=== PATIENT | male | born 1955 | race Caucasian/White ===

== ENCOUNTER 2018-11-08 09:05 | Day surgery (SDC) | payer MEDICARE ==
[2018-11-08] MEDS ORDERED: Fentanyl 100 MCG/2 ML VIAL ONE ×2 (11:03→11:52)
[2018-11-08] MEDS ORDERED: Midazolam HCl 2 mg/2 ml Vial ONE (11:03)
[2018-11-08] MEDS ORDERED: PROPOFOL 20 ML ONE (11:52)
[2018-11-08] MEDS ORDERED: Lidocaine 1% PF 5 ML VIAL ONE ×2 (11:52→18:36)
--- NOTE | 2018-11-08 13:10 | RAD ---
Intraoperative imaging left wrist: 11/08/2018 COMPARISON: 10/29/2018 HISTORY: Wrist fracture status post ORIF FINDINGS: The previously noted comminuted distal left radial fracture has been treated with screw and plate fixation. There is anatomic alignment at the fracture site. There is a mildly displaced transverse fracture at the base of the ulnar styloid. IMPRESSION: ORIF as above.
[2018-11-08] MEDS ORDERED: Acetaminophen/Codeine 30-300mg Tablet ONE (15:33)
[2018-11-08] MEDS ORDERED: Bupivacaine HCl 0.5%/Epinephrine 1:200,000/PF 30 ml Vial ONE (17:38)
--- NOTE | 2018-11-08 18:24 | OP ---
DATE OF PROCEDURE: 11/08/2018 OPERATION PERFORMED: Open reduction and internal fixation of left distal radius fracture. PREOPERATIVE DIAGNOSIS: Displaced left distal radius fracture. POSTOPERATIVE DIAGNOSIS: Displaced left distal radius fracture. COMPLICATIONS: None. ESTIMATED BLOOD LOSS: 50 mL. MEDICAL SERVICES ASSISTANT: Dwain Martinez. IMPLANT: Synthes volar distal radial plate with multiple locking and nonlocking screws. INDICATIONS: Mr. Ramos is a 63-year-old male, who fell and broke his left distal radius. He was indicated for open reduction and internal fixation to restore anatomic alignment and promote healing. Risks have been reviewed in detail. He elected to proceed with the operation. DESCRIPTION OF PROCEDURE: Mr. Ramos was identified in the preoperative holding area. His correct extremity was marked. He was carried to the operating room. He was positioned supine. General anesthesia was induced. A multidisciplinary time-out was performed. The left upper extremity was prepped and draped in sterile fashion. We began the procedure with a volar FCR approach to the distal radius. The tendon sheath was opened. We exposed the underlying pronator quadratus, which was elevated from the bone. We then exposed the underlying fracture. There was extensive displacement. We cleared the bony edges. We then reduced the fracture with reduction forceps and traction. We held this with a K-wire. At this point, we applied our volar distal radial plate. Multiple screws were placed proximally and distally. We locked the plate to the bone. We thoroughly irrigated with copious lavage. We then filled all screw holes. We took final x-ray images. We thoroughly irrigated and closed in layers appropriately. A sterile dressing and a splint were placed. The patient was then taken to the recovery room in good condition. Job ID: [id number]
[2018-11-08] MEDS ORDERED: Metoclopramide HCl 10 MG/2 ML VIAL ONE (18:36)
[2018-11-08] MEDS ORDERED: Ketorolac Tromethamine 30 MG/ML VIAL ONE (18:36)
[2018-11-08] MEDS ORDERED: PROPOFOL 200 MG/20 ML VIAL ONE (18:36)
[2018-11-08] MEDS ORDERED: Ondansetron PF 4 MG/2 ML Vial ONE (18:36)
== END 2018-11-09 16:50 | disposition home or self-care (01) ==
LOC: SDC 09:05
PROVIDERS: ATTEND Orthopaedic Surgery
PROC: 0PSJ04Z Reposition Left Radius with Internal Fixation Device, Open Approach (ICD-10-PCS; principal; 2018-11-08)
PROC: 3E0T3BZ Introduction of Anesthetic Agent into Peripheral Nerves and Plexi, Percutaneous Approach (ICD-10-PCS; 2018-11-08)
DX: S52.592A Other fractures of lower end of left radius, initial encounter for closed fracture (principal); S52.612A Displaced fracture of left ulna styloid process, initial encounter for closed fracture; G89.18 Other acute postprocedural pain; I25.10 Atherosclerotic heart disease of native coronary artery without angina pectoris; Z98.1 Arthrodesis status; W19.XXXA Unspecified fall, initial encounter
CPT/HCPCS: 76000; J0670; J0690; J1885; J2001; J2250; J2405; J2704; J2765; J3010

== ENCOUNTER 2022-10-06 12:38 | Inpatient (IN) | payer MEDICARE ==
[~2022-10-06 12:38] MED LIST: Iopamidol-370 76% 500 ML MDV (1 ML CHARGE) ONE
[2022-10-06 14:23] LABS: #Monocytes 0.6 thou/uL (0.11-0.59); #Neutrophils 8.4 thou/uL (1.40-6.50); %Basophils 0.2 % (0.0-1.0); %Eosinophils 0.2 % (0.0-10.0); %Lymphocytes 10.8 % (21.0-51.0); %Monocytes 5.8 % (0.0-10.0); %Neutrophils 79.2 % (42.0-75.0); Hematocrit 34.1 % (42.0-52.0); Hemoglobin 10.3 g/dL (14.0-18.0); Mean Corpuscular HGB CONC 30.2 g/dL (32.0-36.0); Mean Corpuscular Hemoglobin 22.1 pg (27.0-31.0); Mean Platelet Volume 9.7 fL (7.4-10.4); Platelet Count 469 10x3/uL (130-400); Red Blood Cell (RBC) Count 4.67 mill/uL (4.70-6.10); White Blood Cell (WBC) Count 10.7 10x3/uL (4.8-10.8)
[2022-10-06 14:46] LABS: ALT (SGPT) 26 U/L (8-55); AST (SGOT) 67 U/L (5-34); Albumin 2.9 g/dL (3.4-4.8); Alkaline Phosphatase 479 U/L (40-110); Anion Gap 17 mmol/L (10-20); BUN (Urea Nitrogen) 26 mg/dL (8.4-25.7); Bilirubin, Total 1.4 mg/dL (0.2-1.2); Calc. Creatinine Clearance 0 mL/min (70-130); Calcium 8.8 mg/dL (7.8-10.44); Carbon Dioxide 20 mmol/L (23-31); Chloride 97 mmol/L (98-107); Estimated GFR 87; Glucose 149 mg/dL (80-115); Lipase 21 U/L (8-78); Potassium 4.2 mmol/L (3.5-5.1); Protein, Total 6.9 g/dL (5.8-8.1); Sodium 130 mmol/L (136-145)
[2022-10-06 14:50] LABS: Troponin I Less than 0.010 ng/mL (< 0.028)
[2022-10-06 15:08] LABS: Anisocytosis SLIGHT = 6-15 cells HPF (0-5); Burr Cells SLIGHT = 2-5 cells HPF (0-1); CellaVision Operator ID LAB.KB; Hypochromia SLIGHT = 6-15 cells HPF (0-5); Microcytosis SLIGHT = 6-15 cells HPF (0-5); Platelet Adequacy Comment Platelets Increased; Polychromasia SLIGHT = 2-3 cells HPF (0-2)
[2022-10-06] MEDS ORDERED: Acetaminophen 325 MG TAB PO PRN (18:45)
[2022-10-06] MEDS ORDERED: Ondansetron ODT 4 MG TAB SL PRN (18:45)
[2022-10-06] MEDS ORDERED: Ondansetron PF 4 MG/2 ML Vial IVP PRN (18:45)
[2022-10-06] MEDS ORDERED: HumaLOG 300 UNITS/3 ML VIAL SC PRN ×2 (19:19)
[2022-10-06] MEDS ORDERED: Dextrose 50% Abboject 50 ML SYRINGE SLOW IVP PRN (19:19)
[2022-10-06] MEDS ORDERED: Glucagon 1 MG/ML KIT IM PRN (19:19)
[2022-10-06] MEDS ORDERED: Dextrose 5% in Water 1,000 ML IV PRN (19:19)
[2022-10-06] MEDS ORDERED: Ipratropium/Albuterol 3 ML NEB NEB PRN (20:20)
[2022-10-06 20:21] LABS: Magnesium 1.6 mg/dL (1.6-2.6); Phosphorus 4.1 mg/dL (2.3-4.7)
[2022-10-06] MEDS: Sodium Chloride 0.9% 1,000 ML IV SCH (21:20)
[2022-10-06 21:41] LABS: INR-International Normal Ratio 1.3; Prothrombin Time 16.6 sec (12.0-14.7)
[2022-10-06 21:42] LABS: PTT 35.7 sec (22.9-36.1)
[2022-10-06 21:48] LABS: Anion Gap 14 mmol/L (10-20); BUN (Urea Nitrogen) 23 mg/dL (8.4-25.7); Calc. Creatinine Clearance 0 mL/min (70-130); Carbon Dioxide 16 mmol/L (23-31); Chloride 102 mmol/L (98-107); Estimated GFR 87; Glucose 165 mg/dL (80-115); Potassium 4.2 mmol/L (3.5-5.1); Sodium 128 mmol/L (136-145)
[2022-10-06 23:08] VITALS: BMI 25.2
[2022-10-07 04:53] LABS: Actual Bicarbonate (HCO3v) 20.5 mEq/L (22-28); Base Excess -4.6 mEq/L (-2.0 to +3.0); Calcium, Ionized (venous) 1.12 mmol/L (1.16-1.32); Chloride (VBG) 101 mmol/L (98-106); Hematocrit-VBG 34 % (42.0-52.0); Hemoglobin (Hb) 11.7 g/dL (12.6-17.4); Potassium (VBG) 4.05 mmol/L (3.70-5.30); Sodium 133.6 mmol/L (133-146); pH (venous) 7.351 (7.32-7.43)
[2022-10-07 05:08] LABS: Hemoglobin A1c 6.2 % (4.0-6.0)
[2022-10-07 05:16] LABS: Anion Gap 16 mmol/L (10-20); BUN (Urea Nitrogen) 20 mg/dL (8.4-25.7); Calc. Creatinine Clearance 90 mL/min (70-130); Calcium 8.9 mg/dL (7.8-10.44); Carbon Dioxide 19 mmol/L (23-31); Chloride 100 mmol/L (98-107); Cholesterol 195 mg/dl (< 200 Desired); Estimated GFR 97; Glucose 133 mg/dL (80-115); HDL Cholesterol 13 mg/dL (>60 Neg Risk); LDL Cholesterol, Calculated 139 mg/dL; Potassium 3.9 mmol/L (3.5-5.1); Sodium 131 mmol/L (136-145); Triglycerides 217 mg/dL (Less than 150)
[2022-10-07] MEDS: Mometasone/Formoterol 200/5 60 PUFF INH SCH ×2 (07:19→18:09)
[2022-10-07] MEDS ORDERED: Clopidogrel Bisulfate 75 MG TAB PO SCH (09:00)
[2022-10-07] MEDS: Pantoprazole 40 MG VIAL IVP SCH (09:03)
[2022-10-07] MEDS: Aspirin 81 mg Enteric Coated Tablet PO SCH (09:03)
[2022-10-07] MEDS: Gemfibrozil 600 MG TAB PO SCH ×2 (09:03→15:36)
[2022-10-07] MEDS: Sodium Chloride 0.9% 1,000 ML IV SCH (09:05)
[2022-10-07 09:07] LABS: HBCM Index 0.08 S/CO (0-0.79); HBSAg Index 0.42 S/CO (0-0.99); Hep A IgM AB Non-Reactive S/CO (NonReactive); Hep A IgM S/CO 0.17 S/CO (0-0.79); Hep B Surf Ag Non-Reactive S/CO (NonReactive); Hep C IgG Ab Non-Reactive S/CO (NonReactive); Hep C Index 0.07 S/CO (0-0.79); Hepatitis B Core IgM Abs Non-Reactive S/CO (NonReactive)
[2022-10-07] MEDS: Acetaminophen 325 MG TAB PO PRN (18:05)
[2022-10-08] MEDS: Sodium Chloride 0.9% 1,000 ML IV SCH ×2 (00:04→13:58)
[2022-10-08] MEDS: Acetaminophen 325 MG TAB PO PRN ×2 (02:03→09:14)
[2022-10-08] MEDS ORDERED: HYDROcodone/Acetaminophen 5/325 mg Tablet PO SCH (03:15)
[2022-10-08 05:26] LABS: ALT (SGPT) 30 U/L (8-55); AST (SGOT) 90 U/L (5-34); Albumin 2.7 g/dL (3.4-4.8); Alkaline Phosphatase 555 U/L (40-110); Anion Gap 13 mmol/L (10-20); BUN (Urea Nitrogen) 15 mg/dL (8.4-25.7); Bilirubin, Total 1.2 mg/dL (0.2-1.2); Calc. Creatinine Clearance 101 mL/min (70-130); Calcium 8.7 mg/dL (7.8-10.44); Carbon Dioxide 19 mmol/L (23-31); Chloride 104 mmol/L (98-107); Estimated GFR 100; Gamma GT (GGT) 165 U/L (12-64); Globulin 3.6 g/dL (2.4-3.5); Glucose 175 mg/dL (80-115); Iron 21 ug/dL (65-175); Iron Binding Capacity, Total 281 mcg/dL (261-462); Potassium 3.3 mmol/L (3.5-5.1); Protein, Total 6.3 g/dL (5.8-8.1); Sodium 133 mmol/L (136-145)
[2022-10-08] MEDS: Mometasone/Formoterol 200/5 60 PUFF INH SCH (07:37)
[2022-10-08] MEDS: Aspirin 81 mg Enteric Coated Tablet PO SCH (09:12)
[2022-10-08] MEDS: Gemfibrozil 600 MG TAB PO SCH ×2 (09:12→16:29)
[2022-10-08] MEDS: Pantoprazole 40 MG VIAL IVP SCH (09:13)
[2022-10-08 15:44] VITALS: BP 120/64; TEMP 98.4
[2022-10-09 17:00] LABS: ANA Symphony (Qualitative) Negative (Negative); ANA Symphony (Quantitative) 0.3 Ratio (< 0.7 Negative); EliA Vaculitis New Method **** NEW METHOD ****; Mitochondrial Ab 0.8 U/mL (<4 Negative); dsDNA IgG Antibody 0.6 IU/mL (<10 Negative)
== END 2022-10-08 18:35 | disposition home or self-care (01) | DRG 436 ==
LOC: ERS 12:38 → 2SE 16:58 → INTOOBSV 16:58 → OBSVTOIN 10-07 14:14
PROVIDERS: ADMIT Internal Medicine; ATTEND Internal Medicine
PROC: 4A10X4Z Monitoring of Central Nervous Electrical Activity, External Approach (ICD-10-PCS; principal; 2022-10-07)
PROC: 4A043R1 Measurement of Venous Saturation, Peripheral, Percutaneous Approach (ICD-10-PCS; 2022-10-07)
DX: C22.0 Liver cell carcinoma (principal); E87.1 Hypo-osmolality and hyponatremia; I50.20 Unspecified systolic (congestive) heart failure; K74.60 Unspecified cirrhosis of liver; E11.9 Type 2 diabetes mellitus without complications; J44.9 Chronic obstructive pulmonary disease, unspecified; I10 Essential (primary) hypertension; I25.2 Old myocardial infarction; E78.5 Hyperlipidemia, unspecified; Z79.82 Long term (current) use of aspirin; Z79.84 Long term (current) use of oral hypoglycemic drugs; Z79.899 Other long term (current) drug therapy; I25.10 Atherosclerotic heart disease of native coronary artery without angina pectoris; I11.0 Hypertensive heart disease with heart failure; Z98.890 Other specified postprocedural states; F17.210 Nicotine dependence, cigarettes, uncomplicated; R63.4 Abnormal weight loss; Z68.25 Body mass index [BMI] 25.0-25.9, adult
CPT/HCPCS: 36415; 36416; 70470; 70551; 71045; 71260; 74177; 74183; 76705; 80048; 80053; 80061; 80074; 82105; 82140; 82378; 82390; 82728; 82805; 82977; 83036; 83516; 83540; 83550; 83605; 83690; 83735; 83880; 84100; 84443; 84484; 85025; 85610; 85730; 86015; 86038; 86225; 86850; 86900; 86901; 93005; 95712; 95819; 95957; C9113; J1650; J1815; J7050; Q9967

== ENCOUNTER 2022-10-21 13:46 | Inpatient (IN) | payer MEDICARE ==
[2022-10-21 14:20] LABS: #Monocytes 0.6 thou/uL (0.11-0.59); #Neutrophils 6.5 thou/uL (1.40-6.50); %Basophils 0.4 % (0.0-1.0); %Eosinophils 0.1 % (0.0-10.0); %Lymphocytes 10.9 % (21.0-51.0); %Monocytes 7.7 % (0.0-10.0); %Neutrophils 80.2 % (42.0-75.0); Hematocrit 34.5 % (42.0-52.0); Hemoglobin 10.3 g/dL (14.0-18.0); Mean Corpuscular HGB CONC 29.9 g/dL (32.0-36.0); Mean Corpuscular Hemoglobin 22.5 pg (27.0-31.0); Mean Corpuscular Volume 75.5 fl (78.0-98.0); Mean Platelet Volume 9.5 fL (7.4-10.4); Platelet Count 276 10x3/uL (130-400); RBC Distribution Width 21.2 % (11.5-14.5); Red Blood Cell (RBC) Count 4.57 mill/uL (4.70-6.10); White Blood Cell (WBC) Count 8.1 10x3/uL (4.8-10.8)
[2022-10-21 14:53] LABS: ALT (SGPT) 25 U/L (8-55); AST (SGOT) 86 U/L (5-34); Albumin 2.8 g/dL (3.4-4.8); Alkaline Phosphatase 663 U/L (40-110); Anion Gap 12 mmol/L (10-20); BUN (Urea Nitrogen) 11 mg/dL (8.4-25.7); Bilirubin, Total 1.5 mg/dL (0.2-1.2); Calc. Creatinine Clearance 0 mL/min (70-130); Calcium 9.5 mg/dL (7.8-10.44); Carbon Dioxide 24 mmol/L (23-31); Chloride 96 mmol/L (98-107); Estimated GFR 100; Globulin 3.8 g/dL (2.4-3.5); Glucose 200 mg/dL (80-115); Lipase 9 U/L (8-78); Potassium 4.1 mmol/L (3.5-5.1); Protein, Total 6.6 g/dL (5.8-8.1); Sodium 128 mmol/L (136-145)
[2022-10-21 15:11] LABS: Troponin I 0.046 ng/mL (< 0.028)
[2022-10-21] MEDS ORDERED: Famotidine/PF 20 mg/2ml Vial ONE (15:45)
[2022-10-21 16:53] LABS: Bacteria/HPF None Seen HPF (None Seen); Bilirubin Negative (Negative); Blood, Urine Negative (Negative); CAUTI Indications for Culture Pelvic or flank pain; Clarity Clear (Clear); Glucose, Urine (Dipstick) Normal (Negative); Ketone, Urine Negative (Negative); Leukocyte Negative Leu/uL (Negative); Nitrite Negative (Negative); Protein, Urine (Dipstick) 30 mg/dL (Neg-Trace); RBC/HPF 0-3 HPF (0-3); Squamous Epithelial 0-3 HPF (0-3); WBC/HPF 0-3 HPF (0-3)
[2022-10-21 17:00] LABS: Specific Gravity, Urine 1.051 (1.002-1.036); Urine Culture Reflex No No
[2022-10-21] MEDS ORDERED: Ondansetron PF 4 MG/2 ML Vial IVP PRN (17:15)
[2022-10-21] MEDS ORDERED: Senokot S 8.6-50 MG TAB PO PRN (17:15)
[2022-10-21] MEDS ORDERED: Calcium Carbonate 500 MG ChewTAB PO PRN (17:15)
[2022-10-21] MEDS ORDERED: HYDROcodone/Acetaminophen 5/325 mg Tablet PO PRN (17:15)
[2022-10-21] MEDS ORDERED: Bisacodyl 5 MG TAB PO PRN (17:15)
[2022-10-21] MEDS ORDERED: Dextrose 5% in Water 1,000 ML IV PRN (17:17)
[2022-10-21] MEDS ORDERED: Dextrose 50% Abboject 50 ML SYRINGE SLOW IVP PRN (17:17)
[2022-10-21] MEDS ORDERED: HumaLOG 300 UNITS/3 ML VIAL SC PRN ×2 (17:17)
[2022-10-21] MEDS ORDERED: Glucagon 1 MG/ML KIT IM PRN (17:17)
[2022-10-21] MEDS ORDERED: Morphine 2 MG/ML VIAL SLOW IVP PRN (17:59)
[2022-10-21 18:10] LABS: Lactic Acid 1.8 mmol/L (0.5-2.2)
[2022-10-21] MEDS: Famotidine/PF 20 mg/2ml Vial SLOW IVP SCH (20:20)
[2022-10-21] MEDS: Sodium Chloride 0.9% 1,000 ML IV SCH (20:22)
[2022-10-21 22:56] LABS: Lactic Acid 1.8 mmol/L (0.5-2.2)
[2022-10-21 23:04] LABS: Troponin I 0.051 ng/mL (< 0.028)
[2022-10-22] MEDS: Sodium Chloride 0.9% 1,000 ML IV SCH ×2 (05:06→14:29)
[2022-10-22 07:55] LABS: #Monocytes 0.5 thou/uL (0.11-0.59); #Neutrophils 5.5 thou/uL (1.40-6.50); %Basophils 0.3 % (0.0-1.0); %Eosinophils 0.1 % (0.0-10.0); %Lymphocytes 10.5 % (21.0-51.0); %Monocytes 7.7 % (0.0-10.0); %Neutrophils 80.8 % (42.0-75.0); Hemoglobin 8.9 g/dL (14.0-18.0); Mean Corpuscular HGB CONC 29.7 g/dL (32.0-36.0); Mean Corpuscular Hemoglobin 22.3 pg (27.0-31.0); Mean Corpuscular Volume 75.2 fl (78.0-98.0); Mean Platelet Volume 9.2 fL (7.4-10.4); Platelet Count 254 10x3/uL (130-400); RBC Distribution Width 21.3 % (11.5-14.5); Red Blood Cell (RBC) Count 3.99 mill/uL (4.70-6.10); White Blood Cell (WBC) Count 6.8 10x3/uL (4.8-10.8)
[2022-10-22 08:21] LABS: ALT (SGPT) 17 U/L (8-55); AST (SGOT) 52 U/L (5-34); Albumin 2.5 g/dL (3.4-4.8); Alkaline Phosphatase 569 U/L (40-110); Anion Gap 10 mmol/L (10-20); BUN (Urea Nitrogen) 10 mg/dL (8.4-25.7); Bilirubin, Total 1.2 mg/dL (0.2-1.2); Calc. Creatinine Clearance 118 mL/min (70-130); Calcium 8.2 mg/dL (7.8-10.44); Carbon Dioxide 21 mmol/L (23-31); Chloride 103 mmol/L (98-107); Estimated GFR 104; Glucose 154 mg/dL (80-115); Magnesium 1.5 mg/dL (1.6-2.6); Potassium 2.8 mmol/L (3.5-5.1); Protein, Total 5.5 g/dL (5.8-8.1); Sodium 131 mmol/L (136-145)
[2022-10-22 08:22] LABS: Phosphorus 3.3 mg/dL (2.3-4.7)
[2022-10-22 08:23] LABS: Troponin I 0.037 ng/mL (< 0.028)
[2022-10-22] MEDS: Aspirin 81 mg Enteric Coated Tablet PO SCH (09:15)
[2022-10-22] MEDS: Famotidine/PF 20 mg/2ml Vial SLOW IVP SCH ×2 (09:15→20:45)
[2022-10-22 09:25] VITALS: BMI 25.3
[2022-10-22] MEDS ORDERED: Magnesium 2 GM/50 ML(in water) 2 GM in Premix Bag 1 BAG IVPB SCH (09:45)
[2022-10-22] MEDS: Potassium Chloride 20 MEQ TAB PO SCH ×2 (10:42→14:38)
[2022-10-22] MEDS ORDERED: Iopamidol-370 76% 500 ML MDV (1 ML CHARGE) ONE (13:03)
[2022-10-22] MEDS ORDERED: Megestrol Acetate 800 MG/20 ML UDCUP PO SCH (14:15)
[2022-10-22 23:19] LABS: Troponin I 0.039 ng/mL (< 0.028)
[2022-10-22 23:26] LABS: Anion Gap 11 mmol/L (10-20); BUN (Urea Nitrogen) 11 mg/dL (8.4-25.7); Calc. Creatinine Clearance 122 mL/min (70-130); Calcium 8.4 mg/dL (7.8-10.44); Carbon Dioxide 22 mmol/L (23-31); Chloride 104 mmol/L (98-107); Estimated GFR 105; Glucose 141 mg/dL (80-115); Magnesium 1.8 mg/dL (1.6-2.6); Potassium 4.3 mmol/L (3.5-5.1); Sodium 133 mmol/L (136-145)
[2022-10-23 02:05] LABS: #Monocytes 0.5 thou/uL (0.11-0.59); #Neutrophils 5.5 thou/uL (1.40-6.50); %Basophils 0.4 % (0.0-1.0); %Eosinophils 0.4 % (0.0-10.0); %Lymphocytes 13.6 % (21.0-51.0); %Monocytes 7.6 % (0.0-10.0); %Neutrophils 77.6 % (42.0-75.0); Hematocrit 31.2 % (42.0-52.0); Hemoglobin 9.3 g/dL (14.0-18.0); Mean Corpuscular HGB CONC 29.8 g/dL (32.0-36.0); Mean Corpuscular Hemoglobin 22.7 pg (27.0-31.0); Mean Corpuscular Volume 76.1 fl (78.0-98.0); Mean Platelet Volume 9.7 fL (7.4-10.4); Platelet Count 306 10x3/uL (130-400); RBC Distribution Width 21.6 % (11.5-14.5); White Blood Cell (WBC) Count 7.1 10x3/uL (4.8-10.8)
[2022-10-23 02:25] LABS: Troponin I 0.044 ng/mL (< 0.028)
[2022-10-23 02:36] LABS: ALT (SGPT) 20 U/L (8-55); AST (SGOT) 57 U/L (5-34); Albumin 2.8 g/dL (3.4-4.8); Alkaline Phosphatase 631 U/L (40-110); Anion Gap 14 mmol/L (10-20); BUN (Urea Nitrogen) 11 mg/dL (8.4-25.7); Bilirubin, Total 1.5 mg/dL (0.2-1.2); Calc. Creatinine Clearance 109 mL/min (70-130); Calcium 8.9 mg/dL (7.8-10.44); Carbon Dioxide 21 mmol/L (23-31); Chloride 104 mmol/L (98-107); Estimated GFR 102; Globulin 3.3 g/dL (2.4-3.5); Glucose 154 mg/dL (80-115); Magnesium 1.8 mg/dL (1.6-2.6); Phosphorus 2.7 mg/dL (2.3-4.7); Potassium 4.4 mmol/L (3.5-5.1); Protein, Total 6.1 g/dL (5.8-8.1); Sodium 135 mmol/L (136-145)
[2022-10-23] MEDS ORDERED: Megestrol Acetate 800 MG/20 ML UDCUP PO SCH (09:00)
[2022-10-23] MEDS: Aspirin 81 mg Enteric Coated Tablet PO SCH (10:01)
[2022-10-23] MEDS: Famotidine/PF 20 mg/2ml Vial SLOW IVP SCH (10:02)
[2022-10-23 12:22] VITALS: BP 125/66; TEMP 97.7
== END 2022-10-23 16:38 | disposition home or self-care (01) | DRG 436 ==
LOC: ERS 13:46 → SUATTDRO 13:46 → 2NO 18:02
PROVIDERS: ADMIT Internal Medicine; ATTEND Internal Medicine
DX: C22.0 Liver cell carcinoma (principal); E87.1 Hypo-osmolality and hyponatremia; I50.22 Chronic systolic (congestive) heart failure; Z66 Do not resuscitate; I11.0 Hypertensive heart disease with heart failure; I25.10 Atherosclerotic heart disease of native coronary artery without angina pectoris; E78.5 Hyperlipidemia, unspecified; E11.9 Type 2 diabetes mellitus without complications; F10.10 Alcohol abuse, uncomplicated; F19.10 Other psychoactive substance abuse, uncomplicated; J44.9 Chronic obstructive pulmonary disease, unspecified; D64.9 Anemia, unspecified; R62.7 Adult failure to thrive; F17.210 Nicotine dependence, cigarettes, uncomplicated; Z79.82 Long term (current) use of aspirin; Z79.899 Other long term (current) drug therapy; Z68.24 Body mass index [BMI] 24.0-24.9, adult
CPT/HCPCS: 36415; 36416; 71275; 74177; 80053; 81001; 82140; 83605; 83690; 83735; 83880; 84100; 84484; 85025; 85379; 87040; 93005; 93010; 93970; 96361; 96374; J1650; J1815; J3475; J7050; Q9967; S0028

== ENCOUNTER 2022-11-21 15:23 | Inpatient (IN) | payer MEDICARE ==
[2022-11-21 15:44] VITALS: BMI 21.7
[2022-11-21] MEDS ORDERED: FLU VACC QS2023(65UP)/MF59C/PF 60 MCG/0.5 ML SYRINGE IM ONE (16:00)
[2022-11-21] MEDS ORDERED: Nicotine 21 MG PATCH TD PRN (17:18)
[2022-11-21] MEDS ORDERED: HumaLOG 300 UNITS/3 ML VIAL SC PRN ×2 (17:18)
[2022-11-21] MEDS ORDERED: Dextrose 50% Abboject 50 ML SYRINGE SLOW IVP PRN (17:18)
[2022-11-21] MEDS ORDERED: Ondansetron ODT 4 MG TAB PO PRN (17:18)
[2022-11-21] MEDS ORDERED: Glucagon 1 MG/ML KIT IM PRN (17:18)
[2022-11-21] MEDS ORDERED: Ondansetron PF 4 MG/2 ML Vial IVP PRN (17:18)
[2022-11-21] MEDS ORDERED: Dextrose 5% in Water 1,000 ML IV PRN (17:18)
[2022-11-21] MEDS ORDERED: Ipratropium/Albuterol 3 ML NEB NEB PRN (17:29)
[2022-11-21] MEDS ORDERED: Sodium Chloride 0.9% 500 ML IV SCH (18:30)
[2022-11-21 19:55] LABS: INR-International Normal Ratio 1.4; PTT 40.1 sec (22.9-36.1); Prothrombin Time 17.3 sec (12.0-14.7)
[2022-11-22 05:06] LABS: #Eosinphils 0.1 thou/uL (0.0-0.7); #Monocytes 0.7 thou/uL (0.11-0.59); %Basophils 0.4 % (0.0-1.0); %Eosinophils 0.6 % (0.0-10.0); %Lymphocytes 9.6 % (21.0-51.0); %Monocytes 7.1 % (0.0-10.0); %Neutrophils 81.1 % (42.0-75.0); Hemoglobin 9.4 g/dL (14.0-18.0); Mean Corpuscular HGB CONC 30.3 g/dL (32.0-36.0); Mean Platelet Volume 9.4 fL (7.4-10.4); Platelet Count 431 10x3/uL (130-400); RBC Distribution Width 19.3 % (11.5-14.5); Red Blood Cell (RBC) Count 4.08 mill/uL (4.70-6.10); White Blood Cell (WBC) Count 9.9 10x3/uL (4.8-10.8)
[2022-11-22 05:33] LABS: Anion Gap 18 mmol/L (10-20); BUN (Urea Nitrogen) 16 mg/dL (8.4-25.7); Calc. Creatinine Clearance 95 mL/min (70-130); Calcium 8.8 mg/dL (7.8-10.44); Carbon Dioxide 19 mmol/L (23-31); Chloride 101 mmol/L (98-107); Estimated GFR 103; Glucose 101 mg/dL (80-115); Potassium 3.6 mmol/L (3.5-5.1); Sodium 134 mmol/L (136-145)
[2022-11-22] MEDS: Alogliptin 25 MG TAB PO SCH (08:19)
[2022-11-22] MEDS: Aspirin 325 MG TAB PO SCH (08:19)
[2022-11-22] MEDS ORDERED: LACTOSE REDUCED FOOD PO SCH (09:00)
[2022-11-22] MEDS: Calcium Carbonate 500 MG ChewTAB PO PRN (10:43)
[2022-11-22] MEDS: cefTRIAXone\\ROCEPHIN 1 GM in Sodium Chloride 0.9% 100 ML IVPB SCH (11:48)
[2022-11-22] MEDS: Acetaminophen 325 MG TAB PO PRN (12:38)
[2022-11-22 12:55] LABS: Magnesium 1.9 mg/dL (1.6-2.6)
[2022-11-22] MEDS: Sodium Chloride 0.9% 1,000 ML IV SCH (15:17)
[2022-11-23 08:54] LABS: #Monocytes 0.6 thou/uL (0.11-0.59); #Neutrophils 6.2 thou/uL (1.40-6.50); %Basophils 0.4 % (0.0-1.0); %Eosinophils 0.5 % (0.0-10.0); %Monocytes 7.3 % (0.0-10.0); %Neutrophils 80.9 % (42.0-75.0); Hematocrit 30.6 % (42.0-52.0); Hemoglobin 9.4 g/dL (14.0-18.0); Mean Corpuscular HGB CONC 30.7 g/dL (32.0-36.0); Mean Corpuscular Hemoglobin 23.3 pg (27.0-31.0); Mean Corpuscular Volume 75.9 fl (78.0-98.0); Platelet Count 347 10x3/uL (130-400); RBC Distribution Width 19.1 % (11.5-14.5); Red Blood Cell (RBC) Count 4.03 mill/uL (4.70-6.10); White Blood Cell (WBC) Count 7.6 10x3/uL (4.8-10.8)
[2022-11-23 09:11] LABS: INR-International Normal Ratio 1.3; PTT 37.3 sec (22.9-36.1); Prothrombin Time 17.1 sec (12.0-14.7)
[2022-11-23] MEDS: Aspirin 325 MG TAB PO SCH (09:13)
[2022-11-23] MEDS: Sodium Chloride 0.9% 1,000 ML IV SCH (09:13)
[2022-11-23] MEDS: Alogliptin 25 MG TAB PO SCH (09:13)
[2022-11-23 09:15] LABS: Iron 16 ug/dL (65-175); Iron Binding Capacity, Total 318 mcg/dL (261-462)
[2022-11-23 09:16] LABS: ALT (SGPT) 24 U/L (8-55); AST (SGOT) 103 U/L (5-34); Albumin 2.8 g/dL (3.4-4.8); Alkaline Phosphatase 686 U/L (40-110); Bilirubin, Direct 1.3 mg/dL (0.1-0.3); Bilirubin, Total 1.8 mg/dL (0.2-1.2); Iron 16 ug/dL (65-175); Iron Binding Capacity, Total 318 mcg/dL (261-462)
[2022-11-23 09:25] LABS: Anion Gap 15 mmol/L (10-20); BUN (Urea Nitrogen) 11 mg/dL (8.4-25.7); Calc. Creatinine Clearance 116 mL/min (70-130); Calcium 8.1 mg/dL (7.8-10.44); Carbon Dioxide 21 mmol/L (23-31); Chloride 101 mmol/L (98-107); Cholesterol 310 mg/dl (< 200 Desired); Estimated GFR 109; Glucose 130 mg/dL (80-115); HDL Cholesterol Less than 8 mg/dL (>60 Neg Risk); Magnesium 1.7 mg/dL (1.6-2.6); Potassium 3.7 mmol/L (3.5-5.1); Sodium 133 mmol/L (136-145); Triglycerides 222 mg/dL (Less than 150)
[2022-11-23 09:35] LABS: Ferritin 379.14 ng/mL (22-322)
[2022-11-23 09:41] LABS: Vitamin B12 1040 pg/mL (211-911)
[2022-11-23 09:47] LABS: HIV (1/2) Antibody/Antigen Non-Reactive (NonReactive); HIV 1/2 INDEX 0.12 S/CO (<1.00)
[2022-11-23 11:17] LABS: Syphilis Antibody Nonreactive (Nonreactive); Syphilis Antibody Index 0.04 S/CO (<1.00 Non-Reactive)
[2022-11-23] MEDS: cefTRIAXone\\ROCEPHIN 1 GM in Sodium Chloride 0.9% 100 ML IVPB SCH (13:04)
[2022-11-23] MEDS: traMADol HCl 50 MG TAB PO PRN (13:12)
[2022-11-23] MEDS: Calcium Carbonate 500 MG ChewTAB PO PRN ×2 (15:36→20:23)
[2022-11-23] MEDS ORDERED: Morphine 2 MG/ML VIAL SLOW IVP SCH (15:45)
[2022-11-23] MEDS: Dronabinol 2.5 MG CAP PO SCH (16:50)
[2022-11-24] MEDS: Sodium Chloride 0.9% 1,000 ML IV SCH (05:32)
[2022-11-24 05:55] LABS: #Monocytes 0.5 thou/uL (0.11-0.59); #Neutrophils 6.8 thou/uL (1.40-6.50); %Basophils 0.4 % (0.0-1.0); %Eosinophils 0.5 % (0.0-10.0); %Monocytes 5.8 % (0.0-10.0); %Neutrophils 84.5 % (42.0-75.0); Hematocrit 29.9 % (42.0-52.0); Hemoglobin 9.1 g/dL (14.0-18.0); Mean Corpuscular HGB CONC 30.4 g/dL (32.0-36.0); Mean Corpuscular Hemoglobin 23.4 pg (27.0-31.0); Mean Corpuscular Volume 76.9 fl (78.0-98.0); Mean Platelet Volume 8.9 fL (7.4-10.4); Platelet Count 317 10x3/uL (130-400); RBC Distribution Width 19.3 % (11.5-14.5); Red Blood Cell (RBC) Count 3.89 mill/uL (4.70-6.10)
[2022-11-24 06:18] LABS: Anion Gap 11 mmol/L (10-20); BUN (Urea Nitrogen) 13 mg/dL (8.4-25.7); Calc. Creatinine Clearance 120 mL/min (70-130); Calcium 9.1 mg/dL (7.8-10.44); Carbon Dioxide 23 mmol/L (23-31); Chloride 102 mmol/L (98-107); Estimated GFR 110; Glucose 138 mg/dL (80-115); Magnesium 1.4 mg/dL (1.6-2.6); Sodium 133 mmol/L (136-145)
[2022-11-24 06:36] LABS: INR-International Normal Ratio 1.4; PTT 36.8 sec (22.9-36.1); Prothrombin Time 17.6 sec (12.0-14.7)
[2022-11-24] MEDS ORDERED: Ferrous Sulfate 325 MG TAB PO SCH (09:00)
[2022-11-24] MEDS: Dronabinol 2.5 MG CAP PO SCH ×2 (09:05→17:01)
[2022-11-24] MEDS: Aspirin 325 MG TAB PO SCH (09:05)
[2022-11-24] MEDS: Potassium Chloride 20 MEQ TAB PO SCH ×2 (09:05→21:29)
[2022-11-24] MEDS: Alogliptin 25 MG TAB PO SCH (09:05)
[2022-11-24] MEDS ORDERED: Magnesium 2 GM/50 ML(in water) 2 GM in Premix Bag 1 BAG IVPB SCH (09:15)
[2022-11-24 09:56] LABS: Troponin I Less than 0.010 ng/mL (< 0.028)
[2022-11-24] MEDS: cefTRIAXone\\ROCEPHIN 1 GM in Sodium Chloride 0.9% 100 ML IVPB SCH (12:33)
[2022-11-24] MEDS: Calcium Carbonate 500 MG ChewTAB PO PRN ×2 (12:39→17:03)
[2022-11-24] MEDS: Acetaminophen 325 MG TAB PO PRN (13:22)
[2022-11-24] MEDS ORDERED: HYDROcodone/Acetaminophen 5/325 mg Tablet PO SCH (14:00)
[2022-11-24] MEDS ORDERED: Metoprolol Tartrate 5 MG/5 ML VIAL IVP PRN (14:06)
[2022-11-24] MEDS ORDERED: Pantoprazole 40 MG VIAL IVP SCH (14:45)
[2022-11-24] MEDS ORDERED: Polyethylene Glycol 3350 17 GM Packet PO SCH (17:45)
[2022-11-24] MEDS: Pantoprazole 40 MG VIAL IVP SCH (21:29)
[2022-11-25] MEDS: Sodium Chloride 0.9% 1,000 ML IV SCH ×2 (00:27→20:18)
[2022-11-25] MEDS: Calcium Carbonate 500 MG ChewTAB PO PRN ×2 (01:19→21:39)
[2022-11-25 05:12] LABS: #Basophils 0.1 thou/uL (0.0-0.2); #Eosinphils 0.1 thou/uL (0.0-0.7); #Monocytes 0.5 thou/uL (0.11-0.59); #Neutrophils 8.1 thou/uL (1.40-6.50); %Basophils 0.5 % (0.0-1.0); %Eosinophils 0.5 % (0.0-10.0); %Lymphocytes 11.1 % (21.0-51.0); %Monocytes 5.4 % (0.0-10.0); %Neutrophils 81.6 % (42.0-75.0); Hemoglobin 8.7 g/dL (14.0-18.0); Mean Corpuscular Hemoglobin 23.3 pg (27.0-31.0); Mean Corpuscular Volume 77.7 fl (78.0-98.0); Mean Platelet Volume 9.6 fL (7.4-10.4); RBC Distribution Width 19.5 % (11.5-14.5); Red Blood Cell (RBC) Count 3.73 mill/uL (4.70-6.10); White Blood Cell (WBC) Count 9.9 10x3/uL (4.8-10.8)
[2022-11-25 05:20] LABS: Platelet Count 473 10x3/uL (130-400)
[2022-11-25 05:28] LABS: INR-International Normal Ratio 1.4; PTT 35.5 sec (22.9-36.1); Prothrombin Time 17.6 sec (12.0-14.7)
[2022-11-25 06:57] LABS: Anion Gap 15 mmol/L (10-20); BUN (Urea Nitrogen) 19 mg/dL (8.4-25.7); Calc. Creatinine Clearance 120 mL/min (70-130); Calcium 9.2 mg/dL (7.8-10.44); Carbon Dioxide 20 mmol/L (23-31); Chloride 105 mmol/L (98-107); Estimated GFR 110; Glucose 120 mg/dL (80-115); Magnesium 1.7 mg/dL (1.6-2.6); Potassium 4.6 mmol/L (3.5-5.1); Sodium 135 mmol/L (136-145)
[2022-11-25] MEDS ORDERED: Magnesium 2 GM/50 ML(in water) 2 GM in Premix Bag 1 BAG IVPB SCH (09:00)
[2022-11-25] MEDS: Alogliptin 25 MG TAB PO SCH (09:29)
[2022-11-25] MEDS: Aspirin 325 MG TAB PO SCH (09:29)
[2022-11-25] MEDS: Metoprolol Tartrate 25 MG TAB PO SCH ×2 (09:49→20:17)
[2022-11-25] MEDS: Pantoprazole 40 MG VIAL IVP SCH ×2 (09:50→20:18)
[2022-11-25] MEDS: Dronabinol 2.5 MG CAP PO SCH ×2 (09:56→18:37)
[2022-11-25] MEDS: cefTRIAXone\\ROCEPHIN 1 GM in Sodium Chloride 0.9% 100 ML IVPB SCH (13:12)
[2022-11-25] MEDS ORDERED: Iron, Sodium Ferric Gluconate 250 MG in Sodium Chloride 0.9% 250 ML 250 ML IVPB SCH (14:00)
[2022-11-25] MEDS: Acetaminophen 325 MG TAB PO PRN (20:17)
[2022-11-25] MEDS: traMADol HCl 50 MG TAB PO PRN (21:39)
[2022-11-26 04:07] LABS: #Basophils 0.1 thou/uL (0.0-0.2); #Eosinphils 0.1 thou/uL (0.0-0.7); #Monocytes 0.6 thou/uL (0.11-0.59); #Neutrophils 6.5 thou/uL (1.40-6.50); %Basophils 0.7 % (0.0-1.0); %Eosinophils 1.2 % (0.0-10.0); %Lymphocytes 12.4 % (21.0-51.0); %Monocytes 6.6 % (0.0-10.0); %Neutrophils 77.9 % (42.0-75.0); Hematocrit 26.5 % (42.0-52.0); Hemoglobin 7.9 g/dL (14.0-18.0); Mean Corpuscular HGB CONC 29.8 g/dL (32.0-36.0); Mean Corpuscular Hemoglobin 23.1 pg (27.0-31.0); Mean Corpuscular Volume 77.5 fl (78.0-98.0); Mean Platelet Volume 9.4 fL (7.4-10.4); RBC Distribution Width 19.8 % (11.5-14.5); Red Blood Cell (RBC) Count 3.42 mill/uL (4.70-6.10); White Blood Cell (WBC) Count 8.3 10x3/uL (4.8-10.8)
[2022-11-26 04:29] LABS: INR-International Normal Ratio 1.4; Prothrombin Time 17.8 sec (12.0-14.7)
[2022-11-26 04:41] LABS: Platelet Count 351 10x3/uL (130-400)
[2022-11-26 04:45] LABS: Calcium 8.2 mg/dL (7.8-10.44); Chloride 105 mmol/L (98-107); Potassium 3.5 mmol/L (3.5-5.1); Sodium 134 mmol/L (136-145)
[2022-11-26 04:46] LABS: Glucose 80 mg/dL (80-115)
[2022-11-26 04:48] LABS: Anion Gap 15 mmol/L (10-20); Carbon Dioxide 18 mmol/L (23-31)
[2022-11-26 04:49] LABS: Calc. Creatinine Clearance 127 mL/min (70-130); Estimated GFR 112
[2022-11-26 04:50] LABS: BUN (Urea Nitrogen) 14 mg/dL (8.4-25.7)
[2022-11-26 04:51] LABS: Magnesium 1.6 mg/dL (1.6-2.6)
[2022-11-26] MEDS ORDERED: Iron, Sodium Ferric Gluconate 250 MG in Sodium Chloride 0.9% 250 ML 250 ML IVPB SCH (06:00)
[2022-11-26] MEDS ORDERED: Potassium Chloride 20 MEQ TAB PO SCH ×2 (06:15→07:15)
[2022-11-26] MEDS ORDERED: Electrolyte Replacement Protocol FS PRN (06:15)
[2022-11-26] MEDS ORDERED: Magnesium 2 GM/50 ML(in water) 2 GM in Premix Bag 1 BAG IVPB SCH ×2 (06:15→07:15)
[2022-11-26] MEDS: Metoprolol Tartrate 25 MG TAB PO SCH ×2 (08:53→20:20)
[2022-11-26] MEDS: Aspirin 325 MG TAB PO SCH (08:53)
[2022-11-26] MEDS: Pantoprazole 40 MG VIAL IVP SCH ×2 (08:54→20:23)
[2022-11-26] MEDS: Alogliptin 25 MG TAB PO SCH (08:54)
[2022-11-26] MEDS: Dronabinol 2.5 MG CAP PO SCH ×2 (12:12→18:20)
[2022-11-26] MEDS: cefTRIAXone\\ROCEPHIN 1 GM in Sodium Chloride 0.9% 100 ML IVPB SCH (12:14)
[2022-11-26] MEDS: Sodium Chloride 0.9% 1,000 ML IV SCH (18:20)
[2022-11-26 19:56] VITALS: BP 126/64; TEMP 97.6
== END 2022-11-26 20:30 | disposition swing bed (61) | DRG 871 ==
LOC: T4-B 15:23 → 2SE 11-22 14:07
PROVIDERS: ADMIT Family Medicine; ATTEND Internal Medicine
DX: A41.89 Other specified sepsis (principal); G93.41 Metabolic encephalopathy; C22.0 Liver cell carcinoma; I50.22 Chronic systolic (congestive) heart failure; N30.00 Acute cystitis without hematuria; Z66 Do not resuscitate; R65.20 Severe sepsis without septic shock; Z51.5 Encounter for palliative care; E11.9 Type 2 diabetes mellitus without complications; K74.60 Unspecified cirrhosis of liver; J44.9 Chronic obstructive pulmonary disease, unspecified; I25.10 Atherosclerotic heart disease of native coronary artery without angina pectoris; D50.9 Iron deficiency anemia, unspecified; R53.1 Weakness; I11.0 Hypertensive heart disease with heart failure; D63.8 Anemia in other chronic diseases classified elsewhere; F17.210 Nicotine dependence, cigarettes, uncomplicated; R53.81 Other malaise; E87.6 Hypokalemia; E83.42 Hypomagnesemia; I25.2 Old myocardial infarction; Z79.82 Long term (current) use of aspirin; Z79.899 Other long term (current) drug therapy; Z98.890 Other specified postprocedural states
CPT/HCPCS: 36416; 70450; 70551; 71045; 71250; 72131; 74177; 80048; 80061; 80076; 82105; 82140; 82607; 82728; 83540; 83550; 83735; 83880; 84484; 85025; 85610; 85730; 86780; 86850; 86900; 86901; 87086; 87389; 93005; 93010; 93880; 95711; 95819; 95957; C9113; J0696; J1642; J1815; J2272; J2916; J3475; J3490; J7030; J7050; Q0167